=== PATIENT | female | born 1990 | race American Indian/Alaskan Native ===

== ENCOUNTER 2018-05-18 10:02 | Emergency (ER) | payer MEDICAID, OTHER ==
[2018-05-18] MEDS ORDERED: Ibuprofen 800 MG Tab PO ONE (10:59)
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
== END 2018-05-18 11:11 | disposition home or self-care (01) ==
LOC: DL.ED 10:02
DX: S83.92XA Sprain of unspecified site of left knee, initial encounter (principal); S93.402A Sprain of unspecified ligament of left ankle, initial encounter; Z88.1 Allergy status to other antibiotic agents; W19.XXXA Unspecified fall, initial encounter
CPT/HCPCS: 73562; 73610; 99283; A9270

== ENCOUNTER 2021-01-12 13:08 | Emergency (ER) | payer BC ==
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
[2021-01-12] MEDS ORDERED: Sodium Chloride 0.9% 10 ML Syringe FLUSH PRN (13:49)
[2021-01-12] MEDS ORDERED: Iopamidol 612 MG/ML 100 ML Bottle IVPUSH ONE (13:50)
[2021-01-12 14:44] LABS: ANION GAP 14.2 mEq/L (7-13); CHLORIDE,CL 104 mmol/L (98-107); SODIUM,NA 140 mmol/L (136-145)
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
== END 2021-01-12 16:06 | disposition home or self-care (01) ==
LOC: DL.ED 13:08
DX: T71.193A Asphyxiation due to mechanical threat to breathing due to other causes, assault, initial encounter (principal); H11.33 Conjunctival hemorrhage, bilateral; R23.3 Spontaneous ecchymoses; M54.2 Cervicalgia
CPT/HCPCS: 36415; 70491; 80048; 81025; 99284; Q9967

== ENCOUNTER 2025-06-16 13:43 | Inpatient (IN) | payer MEDICAID ==
[2025-06-16] MEDS: Midazolam 1 MG/ML 2 ML SDV IVPUSH ONE ×2 (14:18→15:13)
[2025-06-16] MEDS: Ketorolac 30 MG/ML SDV IVPUSH ONE (14:18)
[2025-06-16] MEDS: Sodium Chloride 0.9% 10 ML Syringe FLUSH PRN (18:01)
[2025-06-16] MEDS: Take Home: Acetaminophen/HYDROcodone 325-5 MG, 5 Tab Pack PO ONE (22:09)
[2025-06-16 22:28] LABS: BASOPHILS PERCENT AUTO 0.1 % (0.0-1.0); EOSINOPHILS PERCENT AUTO 0.2 % (1.0-3.0); LYMPHOCYTES PERCENT AUTO 24.8 % (20.5-50.1); MONOCYTES PERCENT AUTO 4.6 % (2-8); NEUTROPHILS PERCENT AUTO 70.3 % (42.2-75.2); PLATELET COUNT,PLT 274 10^3/uL (150-450); RED BLOOD CELL COUNT 5.08 10^6/uL (4.2-5.4); WHITE BLOOD CELL COUNT,WBC 11.4 10^3/uL (5.0-10.0)
[2025-06-16] MEDS: Ondansetron 4 MG/2 ML SDV IVPUSH ONE (22:33)
[2025-06-16 22:42] LABS: CREATINE KINASE,CK 97.0 U/L (16-191)
[2025-06-16] MEDS: methylPREDNISolone Sodium Succinate 40 MG/1 ML SDV IVPUSH ONE (23:35)
[2025-06-16] MEDS: fentaNYL 100 MCG/2 ML SDV IVPUSH PRN (23:35)
[2025-06-17] MEDS: Ondansetron 4 MG/2 ML SDV IVPUSH SCH (03:04)
[2025-06-17 03:36] LABS: APPEARANCE,URINE CLEAR (CLEAR); GLUCOSE,URINE NEGATIVE (NEGATIVE); OCCULT BLOOD,URINE LARGE (NEGATIVE)
[2025-06-17 03:48] LABS: SQUAMOUS EPITHELIAL CELLS,UR FEW /HPF (NOT SEEN)
[2025-06-17] MEDS: Heparin Sodium 5,000 Units/ML Vial SUBCUT SCH (05:27)
[2025-06-17] MEDS: methylPREDNISolone Sodium Succinate 40 MG/1 ML SDV IVPUSH ONE (13:20)
[2025-06-18] MEDS: FLU (Flulaval) 25-26(6MOS UP)/PF 45 MCG/0.5 ML Syringe IM ONE (10:32)
== END 2025-06-18 11:35 | disposition home or self-care (01) | DRG 552 ==
LOC: DL.ED 13:43 → DL.MS 21:33 → OBSVTOIN 06-17 13:22
PROVIDERS: ADMIT Internal Medicine; ATTEND Internal Medicine
DX: M51.86 Other intervertebral disc disorders, lumbar region (principal); M48.061 Spinal stenosis, lumbar region without neurogenic claudication; M51.87 Other intervertebral disc disorders, lumbosacral region; H54.7 Unspecified visual loss; Z88.8 Allergy status to other drugs, medicaments and biological substances; Z72.0 Tobacco use
CPT/HCPCS: 36415; 72133; 81001; 82550; 84703; 85025; 86140; 90656; 96372; 96374; 96375; 96376; 99222; 99232; 99239; 99283; 99285-25; A9270-GY; G0008; G0378; J1171; J1644; J1885; J2250; J2405; J2919; J3010